=== PATIENT | female | born 1930 | race Caucasian/White ===

== ENCOUNTER → 2018-06-26 | Outpatient (CLI) | payer MEDICARE, BC ==
--- NOTE | 2018-06-27 10:29 | NM ---
EXAMINATION TYPE: NM thyroid image w uptake DATE OF EXAM: 06/27/2018 COMPARISON: NONE HISTORY: Thyrotoxicosis TECHNIQUE: Thyroid iodine uptake is calculated and images performed after the oral administration of 301 uCi 1-123 Capsule. FINDINGS: There is normal distribution of activity throughout the gland, question slightly increased radio pharmaceutical uptake. The 4 hour iodine uptake is calculated at 13.6% (normal range 8-14%). T he 24-hour iodine uptake is calculated at 36.4% (normal range 15-35%). IMPRESSION: Slightly elevated 24-hour iodine uptake, correlate for possible thyroiditis
== END ==
LOC: RADNMMAIN 09:15
PROVIDERS: ATTEND Internal Medicine
DX: E05.90 Thyrotoxicosis, unspecified without thyrotoxic crisis or storm (principal)
CPT/HCPCS: 78014; A9516

== ENCOUNTER → 2020-03-03 | Outpatient (CLI) | payer MEDICARE, BC ==
--- NOTE | 2020-03-04 07:18 | US ---
EXAMINATION TYPE: US pelvis complete transvag DATE OF EXAM: 03/03/2020 COMPARISON: NONE CLINICAL HISTORY: N95.0 Post menopausal bleeding. Patient stated had one episode; TECHNIQUE: TA and TV US. Transabdominal sonographic images of the pelvis were acquired. Transvagin al sonographic images were medically necessary to better assess the following anatomy: endometrium Date of LMP: age 54 EXAM MEASUREMENTS: Uterus: 6.2 x 4.8 x 2.7cm TV US Endometrial Stripe: 0.2 cm Right Ovary: not seen Left Ovary: not seen 1. Uterus: retroverted; multiple calcifications seen in myometrium 2. Endometrium: abnormal fluid area seen in mid and upper endometrium and size = 1.2 x 2.0 x 0.6cm. Endometrial wall combined measures are wnl. 3. Right Ovary: not seen TA or TV US 4. Left Ovary: not seen TA or TV US 5. Bilateral Adnexa: wnl 6. Posterior cul-de-sac: wnl IMPRESSION: 1. Nonspecific multiple calcifications in the myometrium. There is abnormal fluid seen in the mid and upper endometrium measuring 2 cm. This could be related to patient's history of postmenopausal bleed ing. Correlate clinically.
== END | disposition home or self-care (01) ==
LOC: RADUSWWP 15:35
PROVIDERS: ATTEND Internal Medicine
DX: N85.8 Other specified noninflammatory disorders of uterus (principal)
CPT/HCPCS: 76830; 76856